=== PATIENT | male | born 1955 | race Caucasian/White ===

== ENCOUNTER 2022-05-28 11:10 | Observation (INO) | payer OTHER ==
[2022-05-28] MEDS ORDERED: Iopamidol 612 MG/ML 100 ML Bottle IV SCH (11:15)
[2022-05-28] MEDS ORDERED: Sodium Chloride 0.9% 75 ML IV SCH (11:15)
[2022-05-28] MEDS ORDERED: Sodium Chloride 0.9% 1,000 ML IV SCH ×4 (11:30→18:00)
[2022-05-28] MEDS ORDERED: Sodium Chloride 0.9% 10 ML Syringe FLUSH PRN (16:09)
[2022-05-28] MEDS ORDERED: oxyCODONE 5 MG Tab PO PRN (16:09)
[2022-05-28] MEDS ORDERED: Ondansetron 4 MG/2 ML SDV IV PRN (16:09)
[2022-05-28] MEDS ORDERED: Acetaminophen 325 MG Tab PO PRN (16:09)
[2022-05-28] MEDS ORDERED: Enoxaparin 40 MG/0.4 ML Syringe SUBCUT SCH (21:00)
[2022-05-28] MEDS ORDERED: Bacitracin Oint 28.35 GM Tube TOP STA (21:14)
[2022-05-28] MEDS ORDERED: Prochlorperazine 10 MG in Sodium Chloride 0.9% 50 ML IV PRN (21:15)
[2022-05-28] MEDS ORDERED: HYDROmorphone 1 MG/ML Syringe IVPUSH ONE (21:36)
== END 2022-05-28 22:20 ==
LOC: JP.ED 11:10 → JP.ICU 15:31
PROVIDERS: ADMIT Hospitalist; ATTEND Hospitalist
DX: R55 Syncope and collapse (principal); S82.141A Displaced bicondylar fracture of right tibia, initial encounter for closed fracture; I44.0 Atrioventricular block, first degree; M19.041 Primary osteoarthritis, right hand; V89.2XXA Person injured in unspecified motor-vehicle accident, traffic, initial encounter; Z98.890 Other specified postprocedural states
CPT/HCPCS: 36415; 70450; 71260; 72125; 73130; 73562; 74177; 80048; 80307; 82550; 84484; 85018; 85025; 93005; A9270; J0780; J1170; J1650; J3490; J7030; Q9967; 93010; 96360; 96361; 96365; 96372; 96375; 99282; 99285-25; G0378